=== PATIENT | female | born 1960 | race Two or more races ===

== ENCOUNTER 2019-07-12 10:52 | Outpatient (AMBR) | payer MEDICAID, SELFPAY ==
--- NOTE | 2019-07-12 12:51 | PT.OIERPT ---
PT OP Initial Eval Patient Information Visit Reasons: right knee pain Medical Diagnosis: M25.561 Treatment Dx #1: Right Knee Pain Start of Care: 07/12/19 Date of Onset: 1 month ago Initial Assessment Subjective Pt is a 58 y/o female c/o right knee pain (08/15) started 1 month ago. Pt mention that has popping and clicking of the knee as well as intermittent locking. According to patient her past xray showed knee OA no MRI done thus far. Pt has limitation with walking, standing, stairs, squatting, kneeling, lifting, work duties, chores, and self care activities. Objective Right Knee AROM: 0 deg to 120 deg with pain Right Knee MMTs Quads: 3+/5 Hs: 3+/5 Right Hip MMTs Glute Med: 3+/5 Glute Max: 3+/5 SLS: unable Special Test (-) Jane (-) Pat's (-) MCL and LCL stress test (-) ant knee compression test Assessment Pt demonstrate non-specific knee pain with ROM and strength deficits leading to decline function and difficulty with ADLs. Pt will attempt physical therapy if pain persist Pt will be refer back to PCP Short Term and Fpc Goals 1) Decrease knee pain to 2/10 in 6 wks to be able to kneel and squat 2) Increase knee AROM WNL in 6 wks to be able to perform kneeling activities 3) Increase knee MMTs to 4-/5 in 6 wks to be able to perform stairs 4) Increase hip MMTs to 4-/5 in 6 wks to be able to perform chores 5) Increase SLS to 15 sec in 6 wks to be able to perform self care activities 6) Indep with HEP Treatment Plan 1) Manual Therapy 2) Therapeutic Activities 3) Therapeutic Exercises 4) Modalities (ice, heat) 5) Balance Training Frequency and Duration 2 x wk for 6 wks Certification Dates: 07/12/19 to 10/12/19 Office Procedures PT Procedures PT Date of Service: 07/12/19 OP PT Eval Mod Complex 30 minutes: Yes
--- NOTE | 2019-07-15 09:31 | PT.ODAYNRPT ---
PT Outpatient Daily Note Date of Service: 07/15/19 OP Daily Note Visit Reasons: right knee pain Outpatient Physical Therapy Treatment Date: 07/15/19 Subjective: Pt mention that her knee is a little better Objective: Please see flow chart for list of ther ex performed Assessment: tolerate exercises with minimal pain; cues to correct tick tock exercise Plan: Continue with PT Length of Time (minutes) of Treatment: 30 Minutes Office Procedures PT Procedures PT Date of Service: 07/12/19 OP PT Eval Mod Complex 30 minutes: Yes PT Procedures PT Date of Service: 07/15/19 Therapeutic Exercise 30 minutes: Yes
--- NOTE | 2019-07-18 10:02 | PT.ODAYNRPT ---
PT Outpatient Daily Note Date of Service: 07/18/2019 OP Daily Note Visit Reasons: right knee pain Outpatient Physical Therapy Treatment Date: 07/18/19 Subjective: pt states her knee has little pain upon visit. Objective: see flow sheet. Assessment: increased ankle weight from 1# to 2# in which she denied it being heavy. she is able to contract the quads well with full knee extension during SAQs. single leg heel slides demonstrated weakness as she needed a little boost to increase her ROM. once she was able to see her knee flexion with assistance advised pt to continue with same strength. Plan: continue POC per PT. Length of Time (minutes) of Treatment: 30 Minutes Office Procedures PT Procedures PT Date of Service: 07/12/19 OP PT Eval Mod Complex 30 minutes: Yes PT Procedures PT Date of Service: 07/15/19 Therapeutic Exercise 30 minutes: Yes
--- NOTE | 2019-07-22 13:32 | PT.ODAYNRPT ---
PT Outpatient Daily Note Date of Service: 07/22/2019 OP Daily Note Visit Reasons: right knee pain Outpatient Physical Therapy Treatment Date: 07/22/19 Subjective: pt states her knee is fine from last visit. Objective: see flow sheet. Assessment: added new exercise using ankle weight in which she had pain and discomfort from the hip flexors than the knee itself. she denied the weight being heavy. changed positon of the clam shells exercise from supine to s/L and she did well although she needed to keep her hips in placement instead of rotating them posteriorly. Plan: continue POC per PT. Length of Time (minutes) of Treatment: 30 Minutes Office Procedures PT Procedures PT Date of Service: 07/18/19 Therapeutic Exercise 30 minutes: Yes PT Procedures PT Date of Service: 07/22/19 Therapeutic Exercise 30 minutes: Yes PT Procedures PT Date of Service: 07/12/19 OP PT Eval Mod Complex 30 minutes: Yes PT Procedures PT Date of Service: 07/15/19 Therapeutic Exercise 30 minutes: Yes
--- NOTE | 2019-07-24 12:51 | PT.ODAYNRPT ---
PT Outpatient Daily Note Date of Service: 07/24/19 OP Daily Note Visit Reasons: right knee pain Outpatient Physical Therapy Treatment Date: 07/24/19 Subjective: Pt's knee still hurts in the front and runs down her lopez. Pt has limitation with prolonged walking Objective: Please see flow chart for list of ther ex performed Assessment: pain with all exercises and pace throughout PT session. Difficulty with tick danish exercise secondary to glute fatigue easily Plan: Continue with PT Length of Time (minutes) of Treatment: 30 Minutes Office Procedures PT Procedures PT Date of Service: 07/18/19 Therapeutic Exercise 30 minutes: Yes PT Procedures PT Date of Service: 07/22/19 Therapeutic Exercise 30 minutes: Yes PT Procedures PT Date of Service: 07/12/19 OP PT Eval Mod Complex 30 minutes: Yes PT Procedures PT Date of Service: 07/15/19 Therapeutic Exercise 30 minutes: Yes PT Procedures PT Date of Service: 07/24/19 Therapeutic Exercise 30 minutes: Yes
--- NOTE | 2019-07-29 13:54 | PT.ODS1RPT ---
PT OP Progress/Discharge Note Date of Service: 07/29/19 Progress Note/DC Note Progress Note/Discharge Note: DC Note Patient Information Visit Reasons: right knee pain Medical Diagnosis: M25.561 Treatment Dx #1: Right Knee Pain Service Continue Service or Discharge: Discharge Discharge Date: 07/29/19 Status Subjective: Pt mention that her knee continues to hurt and physical therapy has not help. Pt still has limitation with prolonged walking, squatting, kneeling, chores, self care, and performing work duties. Pt will like to stop physical therapy and follow up with PCP. Objective: Right Knee AROM: 0 deg to 125 deg with end pain Right Knee MMTs Quads: 4-/5 Hs: 4-/5 Right Hip MMTs Glute Med: 3+/5 Glute Max: 3+/5 Assessment: Pt continues to have anteromedial knee pain despite demonstrating good knee mobility and strength leading to difficulty with ADLs. Pt will no longer benefit from physical therapy due to minimal progression towards goals. Pt was instructed on HEP last session and educated to continue exercises to maintain overall mobility. Pt performed all exercises safely, thank you for your referrals. Plan: D/C home with HEP and follow up with PCP Office Procedures PT Procedures PT Date of Service: 07/18/19 Therapeutic Exercise 30 minutes: Yes PT Procedures PT Date of Service: 07/22/19 Therapeutic Exercise 30 minutes: Yes PT Procedures PT Date of Service: 07/29/19 Therapeutic Exercise 30 minutes: Yes PT Procedures PT Date of Service: 07/12/19 OP PT Eval Mod Complex 30 minutes: Yes PT Procedures PT Date of Service: 07/15/19 Therapeutic Exercise 30 minutes: Yes PT Procedures PT Date of Service: 07/24/19 Therapeutic Exercise 30 minutes: Yes
== END 2019-08-06 23:59 | disposition home or self-care (01) ==
PROVIDERS: PCP Physician Assistant; Referring Provider Physician Assistant; Visit Provider Physician Assistant
DX: Z98.890 Other specified postprocedural states (principal); M25.561 Pain in right knee; R26.2 Difficulty in walking, not elsewhere classified
CPT/HCPCS: 97110; 97162

== ENCOUNTER → 2024-03-27 | Outpatient (CLI) | payer MEDICAID, SELFPAY ==
--- NOTE | 2024-03-27 14:30 | XR_ITS ---
Examination: Screening digital mammography, bilateral Computer aided detection 3-D breast Tomosynthesis, bilateral Date and time of exam: March 27, 2024 1401 hours Compared to mammograms dating to October 02, 2015 Indication: Screening Technique: Nonmagnified MLO, CC views of the breasts to been obtained, reconstructed from 3-D Tomosynthesis images. R2 computer aided detection program utilized for evaluation of suspicious masses and/or abnormal calcifications. 3-D Tomosynthesis images obtained. Findings: Scattered areas of fibroglandular density Benign calcifications. No interval suspicious masses Impression: BI-RADS category II: Benign Findings. Recommend 1 year follow-up mammogram.
== END | disposition home or self-care (01) ==
LOC: CDIM 13:51
PROVIDERS: Referring Provider Nurse Practitioner Family; Visit Provider Nurse Practitioner Family
DX: Z12.31 Encounter for screening mammogram for malignant neoplasm of breast (principal); R92.323 Mammographic fibroglandular density, bilateral breasts; R92.1 Mammographic calcification found on diagnostic imaging of breast
CPT/HCPCS: 77063; 77067

== ENCOUNTER → 2024-04-08 | Outpatient (CLI) | payer MEDICAID, SELFPAY ==
--- NOTE | 2024-04-08 12:33 | XR_ITS ---
Examination: Wrist, left 3 views Technique: Wrist AP, oblique, lateral 3 views Date and time of exam: April 08, 2024 1325 hours INDICATIONS: Left forearm surgery February 26, 2024 FINDINGS: Significant partial healing fractures shafts radius and ulna Stable and satisfactory alignment IMPRESSION: Significant partial healing fractures radial and ulnar shafts with stable and satisfactory alignment
--- NOTE | 2024-04-08 12:33 | XR_ITS ---
Examination: Forearm, left, 2 views. Technique: Forearm, AP, lateral 2 views Date and time of exam: April 08, 2024 1325 hours INDICATIONS: Forearm fractures and surgery February 26, 2024 FINDINGS: Partial healing fractures radial and ulnar shafts with satisfactory alignment IMPRESSION: Partial healing fractures radial and ulnar shafts with satisfactory alignment
== END | disposition home or self-care (01) ==
LOC: CDIM 12:19
PROVIDERS: PCP Nurse Practitioner Family; Referring Provider Orthopaedic Surgery; Visit Provider Orthopaedic Surgery
DX: S52.39 Other fracture of shaft of radius (principal); X58.XXXD Exposure to other specified factors, subsequent encounter
CPT/HCPCS: 73090; 73110

== ENCOUNTER → 2024-05-06 | Outpatient (CLI) | payer MEDICAID, SELFPAY ==
--- NOTE | 2024-05-06 10:14 | XR_ITS ---
Examination: Forearm, left, 2 views. Technique: Forearm, AP, lateral 2 views Date and time of exam: May 06, 2024 1053 hours INDICATIONS: Postop surgery for fractures radius ulna February 26, 2024 FINDINGS: Significant healing fractures radial and ulnar shafts Satisfactory alignment of the orthopedic hardware IMPRESSION: Significant healing fractures radial and ulnar shafts
== END | disposition home or self-care (01) ==
LOC: CDIM 10:07
PROVIDERS: PCP Nurse Practitioner Family; Referring Provider Orthopaedic Surgery; Visit Provider Orthopaedic Surgery
DX: S52.392D Other fracture of shaft of radius, left arm, subsequent encounter for closed fracture with routine healing (principal); X58.XXXD Exposure to other specified factors, subsequent encounter
CPT/HCPCS: 73090